=== PATIENT | female | born 1965 | race Hispanic/Latino ===

== ENCOUNTER 2022-02-02 16:21 | Emergency (ER) | payer SELFPAY ==
[~2022-02-02] VITALS: Ht 162.6 cm; Wt 102.5 kg
[2022-02-02] MEDS ORDERED: DOXYCYCLINE HY100 MG PO ×2 (17:16→17:35)
== END 2022-02-02 17:40 | disposition home or self-care (01) ==
LOC: ER 17:00
DX: L02.211 Cutaneous abscess of abdominal wall (principal); I10 Essential (primary) hypertension; E11.9 Type 2 diabetes mellitus without complications; E78.5 Hyperlipidemia, unspecified
CPT/HCPCS: 99282

== ENCOUNTER 2023-12-16 11:51 | Emergency (ER) | payer OTHER ==
[~2023-12-16] VITALS: Ht 162.6 cm; Wt 102.5 kg
[~2023-12-16 11:51] MED LIST: ASPIRIN81 MG PO; CIPROFLOXACIN2.5 ML EXT; CLINDAMYCIN HC300 MG PO; CLOPIDOGREL75 MG PO; DOXYCYCLINE HY100 MG PO; HUMALOG MI100 UNIT/2 SQ; KETOROLAC TROME10 MG PO; LIPITOR20 MG PO; LISINOPRIL2.5 MG PO; METFORMIN HCL500 MG PO; OXYBUTYNIN CHLOR5 MG PO; PANTOPRAZOLE SO40 MG PO; TRESIBA FL200 UNIT/1 SC
[2023-12-16 11:57] VITALS: TEMP 98.9
[2023-12-16 12:23] LABS: BASOPHILS % 0.3 % (0.0-1.0); EOSINOPHILS # (AUTO) 0.1 (0.0-0.4); EOSINOPHILS % 0.6 % (0.0-6.0); HEMOGLOBIN 13.1 g/dL (12.0-16.0); LYMPHOCYTES # (AUTO) 2.9 (1.0-3.2); LYMPHOCYTES % 30.2 % (18.0-39.1); MEAN CORPUSCULAR HEMOGLOBIN 29.6 pg (28-32); MEAN CORPUSCULAR VOLUME 92.6 fL (81-99); MONOCYTES # (AUTO) 0.6 (0.2-0.8); MONOCYTES % 5.9 % (4.4-11.3); NEUTROPHILS # (AUTO) 5.9 (2.1-6.9); NEUTROPHILS % 62.7 % (38.7-80.0); PLATELET COUNT 262 x10e3/uL (140-360); RED BLOOD COUNT 4.43 x10e6/uL (3.6-5.1); RED CELL DISTRIBUTION WIDTH 13.5 % (11.7-14.4); WHITE BLOOD COUNT 9.45 x10e3/uL (4.8-10.8)
[2023-12-16 12:45] LABS: ALBUMIN 3.8 g/dL (3.5-5.0); ALBUMIN/GLOBULIN RATIO 1.1 (0.8-2.0); ANION GAP 14.2 mmol/L (8-16); BILIRUBIN,TOTAL 0.3 mg/dL (0.2-1.2); CALCIUM 9.4 mg/dL (8.4-10.2); CREATININE, SERUM 0.8 mg/dL (0.57-1.11); POTASSIUM 4.2 mmol/L (3.5-5.1); TOTAL PROTEIN 7.3 g/dL (6.5-8.1)
[2023-12-16 13:16] VITALS: PULSE 75; RESP 18; O2SAT 99
[2023-12-16 13:16] LABS: TROPONIN I 0.007 ng/mL (0-0.300)
== END 2023-12-16 14:05 | disposition home or self-care (01) ==
LOC: ER 11:58
DX: R00.2 Palpitations (principal); I10 Essential (primary) hypertension; E11.65 Type 2 diabetes mellitus with hyperglycemia; E78.5 Hyperlipidemia, unspecified; I25.10 Atherosclerotic heart disease of native coronary artery without angina pectoris; I25.2 Old myocardial infarction
CPT/HCPCS: 36415; 71045; 80053; 84484; 85025; 93005; 99284

== ENCOUNTER 2023-12-25 14:54 | Emergency (ER) | payer OTHER ==
[~2023-12-25] VITALS: Ht 162.6 cm; Wt 102.5 kg
[2023-12-25 15:13] VITALS: PULSE 70; RESP 16; TEMP 97.8; O2SAT 96
== END 2023-12-25 15:21 | disposition home or self-care (01) ==
LOC: ER 15:01
DX: H92.02 Otalgia, left ear (principal); I10 Essential (primary) hypertension; E11.9 Type 2 diabetes mellitus without complications; E78.5 Hyperlipidemia, unspecified; I25.10 Atherosclerotic heart disease of native coronary artery without angina pectoris; I25.2 Old myocardial infarction; Z95.1 Presence of aortocoronary bypass graft
CPT/HCPCS: 99282